=== PATIENT | female | born 1975 | race Caucasian/White ===

== ENCOUNTER → 2023-08-12 13:09 | Outpatient (CLI) | payer SELFPAY ==
--- NOTE | ~2023-08-12 | MM_ITS ---
EXAMINATION: MM screening [facility] BI w temitope HISTORY: Screening mammogram TECHNIQUE: Craniocaudal and mediolateral oblique 3-D tomosynthesis images were obtained and synthetic 2-D images were generated. Bilateral rotated lateral CC views. CAD analysis was submitted and inter preted. COMPARISON: 09/14/2019 diagnostic right mammogram and limited right breast ultrasound 07/21/2018 , 06/14/2017 bilateral screening mammogram examinations BREAST PARENCHYMAL COMPOSITION: The breasts are extremely dense, which lowers the sensitivity of mamm ography. FINDINGS: 1.5 x 2 cm low-density circumscribed opacity in the mid to lower outer left breast; the [facility] mographic features are benign, most likely a benign cyst. There is no evidence of suspicious mass, calcification, or architectural distortion to suggest malignancy in either breast. There has been no suspicious interval change. IMPRESSION: 1. Benign finding. No mammographic evidence of malignancy. 2. Recommend routine screening mammography in one year. BI-RADS Category 2: Benign finding(s). Reviewed, dictated and finalized at location A.
== END ==
PROVIDERS: PCP Physician Assistant Medical; Visit Provider Physician Assistant Medical
DX: Z12.31 Encounter for screening mammogram for malignant neoplasm of breast (principal)
CPT/HCPCS: 77063; 77067

== ENCOUNTER 2024-04-28 08:44 | Outpatient (CLI) | payer SELFPAY ==
--- NOTE | ~2024-04-28 | MMUS_ITS ---
EXAMINATION: MM diagnostic [place] LT w temitope, US breast LT complete HISTORY: Palpable left breast lump TECHNIQUE: Additional 3-D tomosynthesis images of the left breast were performed and synthetic 2-D im ages were generated. CAD analysis was submitted and interpreted. High resolution complete left breast ultrasound was performed. COMPARISON: Comparison to multiple prior studies sequentially, with oldest reviewed study dated 06/14. BREAST PARENCHYMAL COMPOSITION: Dense: The breasts are extremely dense, which lowers the sensitivity of mammography. FINDINGS: MAMMOGRAPHIC FINDINGS: There is a mass in the lower outer quadrant of the left breast, middle third corresponding to the are a of palpable concern. There are no suspicious calcifications or architectural distortion. ULTRASOUND: Complete US of all 4 quadrants of the left breast and retroareolar region was reviewed. At 4:00, 1 cm from the nipple in the area of palpable concern there is an oval parallel oriented hypoechoic 2.1 x 1.3 x 2.1 cm mass without internal vascularity. No significant posterior features. At 4:00, 4 cm from the nipple there is a 3 mm cyst. At 2:00, 5 cm from the nipple there is an oval hypoechoic 9 mm mass with parallel orientation, internal vascularity and no posterior features. IMPRESSION: 1. Solid left breast masses at 4:00, 1 cm from the nipple and 2:00, meters from the nipple. 2. Ultrasound-guided left breast biopsies recommended. BI-RADS category 4, suspicious findings. Reviewed, dictated and finalized at location B. IMPRESSION: 1. Solid left breast masses at 4:00, 1 cm from the nipple and 2:00, meters from the nipple. 2. Ultrasound-guided left breast biopsies recommended. BI-RADS category 4, suspicious findings.
== END 2024-04-28 08:45 ==
PROVIDERS: PCP Physician Assistant Medical; Visit Provider Physician Assistant Medical
DX: N63.20 Unspecified lump in the left breast, unspecified quadrant (principal); R92.8 Other abnormal and inconclusive findings on diagnostic imaging of breast
CPT/HCPCS: 76641; 77061; 77065; G0279